=== PATIENT | female | born 1955 | race Caucasian/White ===

== ENCOUNTER 2021-10-20 13:37 | Day surgery (SDC) | payer MEDICARE ==
[~2021-10-20] VITALS: Ht 167.6 cm; Wt 58.3 kg
[2021-10-20] MEDS ORDERED: ATOR20 (14:58)
[2021-10-20] MEDS ORDERED: EUTHYROX125 MCG PO (14:58)
[2021-10-20] MEDS ORDERED: ALBU2.5V5 (14:59)
[2021-10-20] MEDS ORDERED: FISH OIL 1,2001 EAC7 PO (14:59)
== END 2021-10-20 18:16 | disposition home or self-care (01) ==
LOC: ORSCSDS 13:37
PROVIDERS: Orthopaedic Surgery
PROC: 0LS34ZZ Reposition Right Upper Arm Tendon, Percutaneous Endoscopic Approach (ICD-10-PCS; principal; 2021-10-20 14:45)
PROC: 0LM14ZZ Reattachment of Right Shoulder Tendon, Percutaneous Endoscopic Approach (ICD-10-PCS; principal; 2021-10-20 14:45)
PROC: 0RNJ4ZZ Release Right Shoulder Joint, Percutaneous Endoscopic Approach (ICD-10-PCS; principal; 2021-10-20 14:45)
DX: M75.121 Complete rotator cuff tear or rupture of right shoulder, not specified as traumatic (principal); S46.001A Unspecified injury of muscle(s) and tendon(s) of the rotator cuff of right shoulder, initial encounter; M75.21 Bicipital tendinitis, right shoulder; M75.41 Impingement syndrome of right shoulder; J45.909 Unspecified asthma, uncomplicated; E03.9 Hypothyroidism, unspecified; Z79.899 Other long term (current) drug therapy
CPT/HCPCS: C1713; J0171; J0690; J1100; J2250; J2370; J2405; J2704; J3010; J7120